=== PATIENT | female | born 1935 | race Caucasian/White ===

== ENCOUNTER 2019-03-13 08:15 | Emergency (ER) | payer OTHER ==
[~2019-03-13] VITALS: Ht 165.1 cm; Wt 85.7 kg
--- NOTE | 2019-03-13 08:26 | NUR ---
NOELLE MACKAY 37 FROM [facility], IN RESPIRATORY DISTRESS/ALTERED MENTAL STATUS/UNRESPONSIVE. TO ER BED 8, HOOKED TO AIRCRAFT NAVIGATOR, DR ALCAZAR AT BEDSIDE, RT AT BEDSIDE, NOTED NOTED W IVP AT LH 20G, NOTED WITH LOW O2 SATURATION AT 79%, PLACED ON NON-REBREATHER MASK AT 15LPM, O2 SATURATION WENT UP TO 85%.
[2019-03-13] MEDS: IV NS 0.9% 1,000 ML BAG IV ONE (08:30)
[2019-03-13] MEDS ORDERED: ALBUTEROL FS 2.5 MG/0.5 ML VIAL.NEB ONE (08:36)
[2019-03-13] MEDS ORDERED: methylPREDNISolone SOD SUCC 125 MG/2ML VIAL ONE (08:38)
[2019-03-13] MEDS: ALBUTEROL FS 2.5 MG/0.5 ML VIAL.NEB NEB ONE (08:42)
[2019-03-13] MEDS: methylPREDNISolone SOD SUCC 125 MG/2ML VIAL IV ONE (08:44)
[2019-03-13] MEDS: ROCURONIUM BROMIDE 50 MG/5 ML IV ONE (08:56)
[2019-03-13] MEDS: ETOMIDATE 2 MG/ML VIAL IV ONE (08:56)
--- NOTE | 2019-03-13 08:56 | NUR ---
DR ALCAZAR, RT AND RN AT BEDSIDE FOR INTUBATION. VERBAL ORDER RECEIVED FROM DR ALCAZAR FOR ETOMIDATE 20MG IVP AND ROCURONIUM 80MG IVP. CARRIED OUT.
--- NOTE | 2019-03-13 09:00 | NUR ---
INTUBATION DONE BY DR ALCAZAR. SIZE: 7.0 22 AT THE LIP: +COLOR CHANGE +BILATERAL LUNG SOUNDS +BILATERAL CHEST RISE AND FALL.
--- NOTE | 2019-03-13 09:02 | NUR ---
EPINEPHRINE 30MCG GIVEN BY DR ALCAZAR THROUGH IVP. VITAL SIGNS: BP: 48/35MMHG HR: 83 O2 SAT: 84%
[2019-03-13 09:07] LABS: BASOPHILS # (AUTO) 0.1 /CMM (0.0-0.2); BASOPHILS % (AUTO) 0.6 % (0.0-2.0); EOSINOPHILS % (AUTO) 1.3 % (0.0-6.0); HEMATOCRIT 38 % (33-45); LYMPHOCYTES # (AUTO) 4.3 /CMM (0.8-4.8); LYMPHOCYTES % (AUTO) 29.7 % (20.0-44.0); MEAN CORPUSCULAR HGB CONC 32 g/dl (31.0-36.0); MEAN CORPUSCULAR VOLUME 88 fL (82-100); MONOCYTES # (AUTO) 1.6 /CMM (0.1-1.30); MONOCYTES % (AUTO) 11.2 % (2.0-12.0); NEUTROPHILS # (AUTO) 8.3 /CMM (1.8-8.9); NEUTROPHILS % (AUTO) 57.2 % (43.0-81.0); PLATELET COUNT (AUTO) 152 /CMM (150-450); RED BLOOD CELL COUNT(AUTO) 4.26 MIL/uL (4.0-5.2); WHITE BLOOD COUNT (AUTO) 14.5 K/uL (4.3-11.0)
--- NOTE | 2019-03-13 09:07 | NUR ---
EPINEPHRINE [address] ALCAZAR THROUGH IVP. VITAL SIGNS: BP: 70/28MMHG HR: 42 O2 SAT: 20%
[2019-03-13] MEDS: NOREPINEPHRINE 8 MG in IV D5W 500 ML IV ONE (09:08)
--- NOTE | 2019-03-13 09:08 | NUR ---
LEVOPHED DRIP STARTED AT 5 MCG/MIN, IVPB RFA 20G , TITRATE TO EFFECT, STARTED AT 5MCG/MIN END TIME: 1148 AT 03/14/2019 Addendum: 03/18/19 at 1142 by MONTRELL LEVOPHED DRIP STARTED AT 5 MCG/MIN, IVPB RFA 20G , TITRATE TO EFFECT, STARTED AT 5MCG/MIN END TIME: 926
--- NOTE | 2019-03-13 09:08 | NUR ---
LEVOPHED DRIP STARTED AT 5 MCG/MIN
--- NOTE | 2019-03-13 09:10 | NUR ---
EPINEPHRINE [address] ALCAZAR THROUGH IVP.
--- NOTE | 2019-03-13 09:11 | NUR ---
INCREASED LEVOPHED DRIP TO 15MCG/MIN VERBALLY ORDERED BY DR ALCAZAR.
--- NOTE | 2019-03-13 09:13 | NUR ---
EPINEPHRINE [address] ALCAZAR THROUGH IVP. VITAL SIGNS: BP: 46/28 MMHG HR: 38 O2 SAT: 42%
--- NOTE | 2019-03-13 09:14 | NUR ---
INCREASED LEVOPHED DRIP TO 30MCG/MIN VERBALLY ORDERED BY DR ALCAZAR.
--- NOTE | 2019-03-13 09:15 | NUR ---
PATIENT ON CARDIAC ARREST. IMMEDIATELY STARTED CPR.
--- NOTE | 2019-03-13 09:16 | NUR ---
PLEASE SEE CODE BLUE SHEET
[2019-03-13 09:24] LABS: CALCIUM, SERUM 9.8 mg/dL (8.5-10.1); CARBON DIOXIDE 20 mmol/L (21-32); CHLORIDE 110 mmol/L (98-107); CREATININE 2.2 mg/dL (0.6-1.3); GLUCOSE 171 mg/dL (74-106); POTASSIUM 4.6 mmol/L (3.5-5.1); SODIUM SERUM 144 mmol/L (136-145); UREA NITROGEN, BLOOD 26 mg/dL (7-18)
--- NOTE | 2019-03-13 09:27 | NUR ---
TIME OF CALLED BY DR ALCAZAR.
[2019-03-13 09:29] LABS: ALANINE AMINOTRANSFERASE 19 U/L (12-78); ALBUMIN 2.8 g/dL (3.4-5.0); ALKALINE PHOSPHATASE 89 U/L (46-116); ASPARTATE AMINOTRANSFERASE 27 U/L (15-37); B-TYPE NATRIURETIC PEPTIDE 6355 PG/ML (0-125); BILIRUBIN,DIRECT 0.1 mg/dL (0.0-0.2); BILIRUBIN,TOTAL 0.7 mg/dL (0.2-1.0); TOTAL PROTEIN, SERUM 6.8 g/dL (6.4-8.2)
[2019-03-13] MEDS: VANCOMYCIN HCL 1 GM in IV D5W 260 ML IV ONE (09:39)
[2019-03-13] MEDS: PIPERACILLIN /TAZOBACTAM 3.375 G in IV D5W 50 ML IV ONE (09:39)
--- NOTE | 2019-03-13 09:42 | NUR ---
CALLED NUMBERS LISTED FOR EMERGENCY CONTACT AND NO ONE ANSWERED. CALLED THE [employer] NUMBERS AND NO ANSWER EITHER.
--- NOTE | 2019-03-13 09:51 | NUR ---
CALLED [facility] OFFICE LISTED ON EMERGENCY CONTACT. NO ANSWER. MESSAGE WAS LEFT.
--- NOTE | 2019-03-13 09:56 | NUR ---
CALLED RHONDA AUGUSTIN WITH THE OFFICE OF PUBLIC GUARDIAN AND NO ANSWER. LEFT MESSAGE.
--- NOTE | 2019-03-13 10:01 | NUR ---
CALLED [facility] TO REPORT PT . DR DOUGLAS WILL BE NOTIF[facility] AUTH NUMBER [id number]. [facility] ADVISED TO TREAT A CORONERS CASE FOR NOW.
--- NOTE | 2019-03-13 10:04 | NUR ---
called [facility], spoke to moreno, not coroners case. ref # cc [id number]
--- NOTE | 2019-03-13 10:28 | NUR ---
RT NOTE: RECEIVED PT IN ER ON 100% NON-REBREATHER AND INCREASED WOB WITH SATS IN THE 80'S. PER MD ORDER GIVEN HHN TX. TX GIVEN AND TERMINATED AFTER 5 MINS DUE TO INCREASE IN HR AND LOW SATS. PT TO BE INTUBATED. INTUBATION DONE BY ER MD ALCAZAR WITH 7.5 ETT 22 @ LIP LINE. CO2 DETECTOR COLOR CHANGED AND BILATERAL BREATH SOUNDS WERE NOTED. PT THEN BECAME YENNI AND DESATED LOW THE TEENS. NO PULSE DETECTED. CPR INITIATED AND RESCUE MEDS ADMINISTERED THROUGH IV BY RN. PT PRONOUNCED BY @ [id number]. MD RNS AND RTS @ BEDSIDE DURING ALL OCCURRENCES.
--- NOTE | 2019-03-13 10:31 | NUR ---
called [facility] coroners. spoke to CELESTINE. states not a coroners case.
--- NOTE | 2019-03-13 10:34 | NUR ---
CALLED [facility] ON FILE. NUMBER HAS BEEN DISCONNECTED.
--- NOTE | 2019-03-13 10:38 | NUR ---
CALLED NUMBER ON FILE FOR PRIMARY CARE. NO ANSWER. LEFT MESSAGE.
--- NOTE | 2019-03-13 10:48 | NUR ---
[employer]APE[employer] ARTIST AND [employer] MEMBER AT BEDSIDE FOR POST MORTEM CARE. IV AND ET TUBE REMAINED. PERSONAL BELONGINGS LISTED AND PLACED IN A BAG.
--- NOTE | 2019-03-13 11:32 | NUR ---
WHEELED OUT OF EMERGENCY ROOM TO [facility] [place] BY [employer]UC[employer].
[2019-03-13 11:38] VITALS: BP 0/0
== END 2019-03-13 11:39 ==
LOC: ER 08:16
DX: J96.90 Respiratory failure, unspecified, unspecified whether with hypoxia or hypercapnia (principal); I95.9 Hypotension, unspecified; J81.1 Chronic pulmonary edema; I46.9 Cardiac arrest, cause unspecified; R41.82 Altered mental status, unspecified; N18.9 Chronic kidney disease, unspecified; F03.90 Unspecified dementia, unspecified severity, without behavioral disturbance, psychotic disturbance, mood disturbance, and anxiety; F20.9 Schizophrenia, unspecified; R00.0 Tachycardia, unspecified
CPT/HCPCS: 31500; 36415; 80048; 80076; 83605; 83880; 84145; 84484; 85025; 85730; 87040 ×2; 92950; 93005; 94640; 96361; 96365; 96366; 96375; 99291; J2930; J7030; J7060; J2543